=== PATIENT | female | born 1995 | race Hispanic/Latino ===

== ENCOUNTER 2020-08-21 09:21 | Outpatient (CLI) | payer OTHER | END 2020-08-21 09:22 | disposition home or self-care (01) | LOC: BICULT 09:21 | PROVIDERS: ATTEND Urology | DX: R30.0 Dysuria (principal); Z87.440 Personal history of urinary (tract) infections; Z87.448 Personal history of other diseases of urinary system | CPT/HCPCS: 74018; 76770 ==